=== PATIENT | female | born 1970 | race Caucasian/White ===

== ENCOUNTER 2018-06-28 02:03 | Emergency (ER) | payer OTHER ==
[~2018-06-28] VITALS: Ht 165.1 cm; Wt 93.4 kg
[2018-06-28] MEDS ORDERED: WELLBUTRIN SR100 MG (02:20)
[2018-06-28] MEDS ORDERED: RESTORIL7.5 MG (02:20)
[2018-06-28] MEDS ORDERED: TRAZODONE HCL50 MG (02:20)
[2018-06-28] MEDS ORDERED: ATIVAN0.5 M1 (02:21)
[2018-06-28] MEDS ORDERED: DOLOGESIC 500-1 EACH PO (07:17)
== END 2018-06-28 07:29 | disposition home or self-care (01) ==
LOC: ER 02:03
DX: R51 Headache (principal); H57.13 Ocular pain, bilateral

== ENCOUNTER 2022-05-15 15:38 | Emergency (ER) | payer OTHER ==
[~2022-05-15] VITALS: Ht 162.6 cm; Wt 95.3 kg
[~2022-05-15 15:38] MED LIST: ATIVAN0.5 M1; DOLOGESIC 500-1 EACH PO; RESTORIL7.5 MG; TRAZODONE HCL50 MG; WELLBUTRIN SR100 MG
== END 2022-05-15 18:11 | disposition home or self-care (01) ==
LOC: ER 15:38
DX: J06.9 Acute upper respiratory infection, unspecified (principal); Z88.2 Allergy status to sulfonamides; Z88.8 Allergy status to other drugs, medicaments and biological substances; Z91.013 Allergy to seafood

== ENCOUNTER 2023-06-12 13:06 | Emergency (ER) | payer OTHER ==
[~2023-06-12] VITALS: Ht 162.6 cm; Wt 98.0 kg
[2023-06-12] MEDS ORDERED: KETOROLAC TROMETHAMINE 60 MG VIAL IM ONE (15:15)
[2023-06-12 16:18] LABS: HEMATOCRIT 40.8 % (36.0-45.00); HEMOGLOBIN 13.5 g/dL (12.0-15.00); MEAN CELL VOLUME 89.8 fL (80.00-100.00); MEAN CORPUSCULAR HEMOGLOBIN 29.8 pg (27.00-32.0); MEAN CORPUSCULAR HGB CONC 33.1 g/dl (32.0-36.0); PLATELET COUNT 224 K/uL (150-450); RED BLOOD COUNT 4.55 M/uL (4.00-6.00); RED CELL DISTRIBUTION WIDTH 14.1 % (11.5-14.5)
[2023-06-12 16:38] LABS: CALCIUM 10.2 mg/dL (8.5-10.1); CREATININE SERUM 0.79 mg/dL (0.55-1.02); GFR 75.84; POTASSIUM 3.97 mEq/L (3.5-5.1)
== END 2023-06-12 17:34 | disposition home or self-care (01) ==
LOC: ER 13:07
PROVIDERS: General Practice
DX: H57.12 Ocular pain, left eye (principal); Z88.2 Allergy status to sulfonamides; Z91.013 Allergy to seafood; I10 Essential (primary) hypertension